=== PATIENT | female | born 1985 | race Caucasian/White ===

== ENCOUNTER → 2020-04-30 12:06 | Outpatient (BNVA) | payer BC, SELFPAY | PROVIDERS: PCP Nurse Practitioner; Visit Provider Nurse Practitioner Family | DX: J06.9 Acute upper respiratory infection, unspecified (principal); Z20.828 Contact with and (suspected) exposure to other viral communicable diseases | CPT/HCPCS: 87635 ==

== ENCOUNTER → 2020-06-14 11:13 | Outpatient (BNVA) | payer BC, SELFPAY | PROVIDERS: PCP Nurse Practitioner; Visit Provider Nurse Practitioner | DX: E04.9 Nontoxic goiter, unspecified (principal); E66.01 Morbid (severe) obesity due to excess calories; Z98.891 History of uterine scar from previous surgery; Z12.4 Encounter for screening for malignant neoplasm of cervix | CPT/HCPCS: 80053; 84443; 85025; 86800; 88175 ==

== ENCOUNTER → 2020-11-07 10:36 | Outpatient (BNVA) | payer BC, SELFPAY | PROVIDERS: PCP Nurse Practitioner; Visit Provider Nurse Practitioner | DX: R30.0 Dysuria (principal); E04.9 Nontoxic goiter, unspecified | CPT/HCPCS: 81000 ==

== ENCOUNTER 2020-12-03 13:52 | Outpatient (CLI) | payer BC, SELFPAY ==
--- NOTE | 2020-12-03 14:15 | US_ITS ---
WS: [id number] ULTRASOUND THYROID TECHNIQUE: Ultrasound of the thyroid. CLINICAL INFORMATION: E04.9 - Nontoxic goiter, unspecified COMPARISON: June 2012 and July 2009 FINDINGS: Technically difficult examination due to swelling along the left jaw with throat pain. Thyroid: Right and left thyroid lobes are normal in size and echotexture. Right thyroid lobe: 6.1 cm x 2.2 cm x 2.2 cm Right thyroid nodule measuring 1.3 x 1.9 x 2.2 cm. This is increased in size since 2011 where it Laura ured approximately 1.2 x 0.7 x 0.8 cm Left thyroid lobe: 5.5 cm x 1.7 cm x 1.7 cm. Tiny hypoechoic left thyroid lesion measuring 4.1 x 3.5 x 4.4 mm Isthmus: 0.6 mm. Cervical lymphadenopathy: None. US/US thyroid [id number] IMPRESSION: 1. Solid right thyroid nodule measuring 1.3 x 1.9 x 2.2 cm with some internal cystic change. This can be further evaluated with ultrasound-guided biopsy. 2. Tiny hypoechoic left thyroid lesion measuring 4.1 x 3.5 x 4.4 mm 3. No abnormalities in the area of the left submandibular gland and upper cerv ical chain in the area of concern
== END 2020-12-03 13:53 | disposition home or self-care (01) ==
LOC: RAD 13:55
PROVIDERS: PCP Nurse Practitioner; Visit Provider Nurse Practitioner
DX: E04.9 Nontoxic goiter, unspecified (principal); E04.1 Nontoxic single thyroid nodule
CPT/HCPCS: 76536

== ENCOUNTER 2021-01-07 06:47 | Outpatient (CLI) | payer BC, SELFPAY ==
--- NOTE | 2021-01-07 07:02 | US_ITS ---
WS: [id number] ULTRASOUND-GUIDED RIGHT THYROID NODULE FNA HISTORY: E04.9 - Nontoxic goiter, unspecified Procedure, risks, and complications were explained to the patient. Consent has been obtained. Comparison: 12/03/2020. The skin is cleansed with ChloraPrep and anesthetized with 1% buffered lidocaine. FNA performed with 25 gauge needles. neurodiagnostic technologist is present to fix slides. US/US biopsy thyroid [id number] IMPRESSION: Uncomplicated FNA of a RIGHT thyroid nodule. Final pathology results pending.
== END 2021-01-07 06:48 | disposition home or self-care (01) ==
LOC: RAD 06:50
PROVIDERS: PCP Nurse Practitioner; Visit Provider Nurse Practitioner
DX: E04.9 Nontoxic goiter, unspecified (principal)
CPT/HCPCS: 10005; 88173; 88305

== ENCOUNTER → 2021-04-09 08:06 | Outpatient (BNVA) | payer BC, SELFPAY | PROVIDERS: PCP Nurse Practitioner; Visit Provider Nurse Practitioner | DX: E04.1 Nontoxic single thyroid nodule (principal); E88.81 Metabolic syndrome and other insulin resistance; Z13.6 Encounter for screening for cardiovascular disorders | CPT/HCPCS: 80053; 80061; 84443 ==

== ENCOUNTER → 2021-08-07 11:57 | Outpatient (BNVA) | payer BC, SELFPAY | PROVIDERS: PCP Nurse Practitioner; Visit Provider Nurse Practitioner | DX: E04.1 Nontoxic single thyroid nodule (principal) | CPT/HCPCS: 80053; 82306; 82607; 84443; 85025 ==

== ENCOUNTER → 2022-01-28 09:48 | Outpatient (BNVA) | payer SELFPAY | PROVIDERS: PCP Nurse Practitioner; Visit Provider Dermatology | DX: Z01.89 Encounter for other specified special examinations (principal) ==

== ENCOUNTER → 2022-09-17 08:49 | Outpatient (BNVA) | payer BC, SELFPAY | PROVIDERS: PCP Nurse Practitioner; Visit Provider Nurse Practitioner | DX: E53.8 Deficiency of other specified B group vitamins (principal); E55.9 Vitamin D deficiency, unspecified; Z13.6 Encounter for screening for cardiovascular disorders; Z00.00 Encounter for general adult medical examination without abnormal findings; Z30.09 Encounter for other general counseling and advice on contraception | CPT/HCPCS: 80053; 80061; 81003; 82306; 82607; 85025; 87077; 87086; 87184 ==

== ENCOUNTER → 2023-02-27 09:23 | Outpatient (BNVA) | payer BC, SELFPAY | PROVIDERS: PCP Nurse Practitioner; Visit Provider Nurse Practitioner Women's Health | DX: Z34.80 Encounter for supervision of other normal pregnancy, unspecified trimester (principal); N92.6 Irregular menstruation, unspecified | CPT/HCPCS: 80307; 81025; 85027; 86592; 86762; 86803; 86850; 86900; 87086; 87340; 87806 ==

== ENCOUNTER → 2023-03-05 08:03 | Outpatient (BNVA) | payer BC, SELFPAY | PROVIDERS: PCP Nurse Practitioner; Visit Provider Nurse Practitioner Women's Health | DX: Z34.80 Encounter for supervision of other normal pregnancy, unspecified trimester (principal) | CPT/HCPCS: 76801 ==

== ENCOUNTER → 2023-09-08 10:05 | Day surgery (SDC) | payer BC, SELFPAY ==
--- NOTE | 2023-09-08 11:43 | ANES.PREANE2 ---
Pre-Anesthetic Assessment Height/Weight: Height 1.7 m Operation Date: 09/23/23 07:20 Proposed Procedures p Section 71136,Z34.83(Not Applicable) - Josep Laird MD Familial anesthetic complications: PONV and itching after emergency Social No alcohol and No tobacco Exam alert, oriented x 3, clear to auscultation bilaterally and regular rate & rhythm Airway Mallampati: Class II Dentition: full Pulmonary None reported CV/HEM None reported None reported Hepatic None reported GI None reported Metabolic None reported Musc/skel None reported Neuropsych None reported Anesthetic Plan ASA status: 2 Anesthesia: Regional (specify below) (spinal +/ epidural) Risk of > 500 ml blood loss (7ml/kg in children): No Medications/Allergies Home Medications Medication Instructions Recorded Confirmed Last Taken Type cholecalciferol (vitamin D3) 50 50 mcg PO DAILY 09/17/22 03/06/23 Unknown History mcg (2,000 unit) capsule mecobalamin (vitamin B12) 1,000 1,000 mcg PO DAILY 09/17/22 03/06/23 Unknown History mcg chewable tablet PNV 153-FA 400 mcg-om3 35 mg-dha 1 tab PO DAILY 02/27/23 03/06/23 Unknown History 25 mg-epa 5 mg-fish oil chew tablet ( Gummies) Allergies Allergy/AdvReac Type Severity Reaction Status Date / Time No Known Allergies Allergy Verified 03/06/23 15:15 [facility] Anesthesia Medical History (Updated 03/06/23 @ 17:17 by Erika Brennan APN, MANDY) Herpes zoster Metabolic syndrome Thyroid nodule Obesity, Class III, BMI 40-49.9 (morbid obesity) Surgical History (Updated 02/27/23 @ 10:22 by Erika Brennan APN, MANDY) History of hernia repair 07/22/21 History of gastric surgery 07/22/2021 History of section (~2007) Breech presentation; could not attempt version due to labor status-- [facility] Family History Father Hyperlipidemia Hypertension Diabetes Heart disease Brother Hypertension Other Chronic kidney disease (CKD) Denies family history of Colon cancer Ovarian cancer Dementia Breast cancer Bleeding disorder Lung disease Cancer Uterine cancer Thyroid condition Stroke Data Anesthesia Cardiac Studies: No Data to Display
== END ==
PROVIDERS: PCP Family Medicine; Visit Provider Family Medicine
DX: Z01.818 Encounter for other preprocedural examination (principal)

== ENCOUNTER 2023-09-13 15:40 | Outpatient (CLI) | payer BC, SELFPAY ==
[2023-09-13 15:37] VITALS: BMI 31.9
[2023-09-13 16:04] VITALS: RESP 16
[2023-09-13 16:15] LABS: Basophils % 0.4 %; Eosinophils # 0.1 10^3/uL (0.0-0.8); Eosinophils % 0.6 %; Hematocrit 40.4 % (36-47); Lymphocytes # 2.2 10^3/uL (0.8-4.8); Lymphocytes % 21.2 %; Mean Corpuscular HGB Conc 33.4 g/dL (30-55); Mean Corpuscular Hemoglobin 32.1 pg (27-33); Monocytes # 0.6 10^3/uL (0.2-0.9); Monocytes % 5.9 %; Neutrophils # 7.33 10^3/uL (1.8-7.7); Neutrophils % 71.5 %; Nucleated Red Blood Cells % 0 %; Platelet Count 246 10^3/cmm (157-399); Red Blood Count 4.21 10^6/uL (3.85-5.65); Red Cell Distribution Width 13.7 % (12.1-15.1); White Blood Count 10.24 10^3/uL (3.29-11.43)
[2023-09-13] MEDS: HYDROcodone-acetaminophen 5-325 mg Tablet 1 TAB PO (16:25)
[2023-09-13 16:29] LABS: Add Urine Culture? No; Bacteria Urine TRACE /hpf; Bilirubin Urine Neg (Negative); Blood Urine Neg (Negative); Glucose Urine UA Norm (Normal); Ketones Urine Negative (Negative); Leukocyte Esterase Urine Trace (Negative); Nitrate Urine Negative (Negative); Protein Urine Neg (Negative); Specific Gravity, Urine 1.005 (1.005-1.030); Squamous Epithelial Cell Urine 0-4 /hpf (0-5); Urine Appearance Clear (CLEAR); Urine Color Colorless (Yellow); Urobilinogen Urine Norm (Negative); WBC Urine 0-4 /hpf (0-5); pH Urine 6.5 (5-7)
[2023-09-13 16:39] LABS: Urine Creatinine 39 mg/dL (28-217); Urine Protein Random 4 mg/dL
[2023-09-13 16:48] LABS: Albumin Level 3.4 g/dL (3.5-5.2); Chloride 103 mmol/L (98-107); Potassium 4.1 mmol/L (3.5-5.1); Sodium 133 mmol/L (136-145)
[2023-09-13] MEDS: lactated ringers 1,000 ML 999 ML IV (16:53)
[2023-09-13 17:07] LABS: Alanine Aminotransferase 16 U/L (0-33); Anion Gap 16.1 (5-19); Aspartate Amino Transferase 17 U/L (0-32); Blood Urea Nitrogen 10 mg/dL (6-20); Calcium 9.2 mg/dL (8.5-10.5); Carbon Dioxide 18 mmol/L (22-29); Globulin 3.6 g/dL (1.3-4.6); Glomerular Filtration Rate 138.1 mL/min (90-130); Glucose 78 mg/dL (65-115); Osmolality Calculated 274 mOsm/kg (285-295); Total Bilirubin 0.3 mg/dL (0.15-1.2); Uric Acid 4.4 mg/dL (2.4-5.7)
[2023-09-13 17:20] LABS: Alkaline Phosphatase 101 U/L (35-105)
--- NOTE | 2023-09-13 17:41 | USR_ITS ---
PROCEDURE INFORMATION: Exam: US Biophysical Profile Without Non-Stress Test Exam date and time: 09/13/2023 6:00 PM Age: 38 years old Clinical indication: Other: Variable decels; TECHNIQUE: Imaging protocol: US biophysical profile without non-stress testing. COMPARISON: US OB >= 14 weeks fetus [id number] 05/20/2023 4:39 PM FINDINGS: Gestation: Single, viable intrauterine gestation. heart rate: 124 bpm. heart rate (FHR) is 124 bpm. presentation: Fetus is in breech presentation. Placenta: The placenta is anterior. No placental abruption. Amniotic fluid: Normal amount of amniotic fluid, with an amniotic fluid index of 7.3 cm using maximum vertical pocket method. BIOPHYSICAL PROFILE: breathing movement (BPP): 2 out of 2. body movement (BPP): 2 out of 2. tone (BPP): 2 out of 2. Amniotic fluid (BPP): 2 out of 2. MATERNAL ANATOMY: Cervix: The maternal cervix is not visualized. US/US OB BPP wo NST [id number] IMPRESSION: 1. Single, viable intrauterine gestation. 2. Biophysical profile score 8/8.
[2023-09-13 18:41] VITALS: RESP 16
== END 2023-09-13 18:42 | disposition home or self-care (01) ==
LOC: OPOB 15:41 → OBGYN 15:43
PROVIDERS: PCP Family Medicine; Visit Provider Family Medicine
DX: O26.899 Other specified pregnancy related conditions, unspecified trimester (principal); Z3A.00 Weeks of gestation of pregnancy not specified; R51.9 Headache, unspecified
CPT/HCPCS: 36415; 59025; 76819; 80053; 81001; 82570; 84156; 84550; 85025; 99211; J7120

== ENCOUNTER 2023-09-18 22:56 | Inpatient (IN) | payer BC, MEDICAID, SELFPAY ==
[2023-09-18] VITALS (24 sets, daily range): BP systolic 88–122; BP diastolic 50–73; PULSE 52–84; RESP 17–18; BMI 31.6
[2023-09-18] MEDS: morphine 4 mg/mL SDV 1 mL 8 MG IVP (16:58)
[2023-09-18] MEDS: lactated ringers 1,000 ML 125 ML IV (16:58)
[2023-09-18] MEDS: ondansetron 2 mg/ML SDV 2 mL 8 MG IVP (16:59)
--- NOTE | 2023-09-18 17:10 | MRR_ITS ---
PROCEDURE INFORMATION: Exam: MRA Head Without Contrast; Arteriography Exam date and time: 09/18/2023 6:25 PM Age: 38 years old Clinical indication: Pain; Headache; Additional info: Head pain x6 days TECHNIQUE: Imaging protocol: Magnetic resonance angiography head without contrast. Dmnc-la-jueiba (TOF) technique was utilized for this exam. Exam focused on the arteries. COMPARISON: US biopsy/FNA thyroid [id number] 01/07/2021 7:40 AM FINDINGS: ANTERIOR CIRCULATION: Right internal carotid artery: Intracranial segment is patent with no significant stenosis. No aneurysm. Right middle cerebral artery: No occlusion or significant stenosis. No aneurysm. Right anterior cerebral artery: No occlusion or significant stenosis. No aneurysm. Left internal carotid artery: Intracranial segment is patent with no significant stenosis. No aneurysm. Left middle cerebral artery: No occlusion or significant stenosis. No aneurysm. Left anterior cerebral artery: No occlusion or significant stenosis. No aneurysm. POSTERIOR CIRCULATION: Right vertebral artery: No occlusion or significant stenosis. No aneurysm. Left vertebral artery: No occlusion or significant stenosis. No aneurysm. Basilar artery: No occlusion or significant stenosis. No aneurysm. Right posterior cerebral artery: No occlusion or significant stenosis. No aneurysm. Left posterior cerebral artery: No occlusion or significant stenosis. No aneurysm. MR/MR angio head wo con [id number] IMPRESSION: No stenosis or occlusion.
--- NOTE | 2023-09-18 17:13 | MRR_ITS ---
PROCEDURE INFORMATION: Exam: MR Head Without Contrast Exam date and time: 09/18/2023 6:32 PM Age: 38 years old Clinical indication: Pain; Headache; Additional info: Head pain x6 days TECHNIQUE: Imaging protocol: Magnetic resonance imaging of the head without contrast. COMPARISON: MR angio head wo con [id number] 09/18/2023 6:25 PM FINDINGS: Brain: Normal. No acute infarct. No hemorrhage. No significant white matter disease. No edema. Cerebral ventricles: Normal. No ventriculomegaly. Bones/joints: Unremarkable. Paranasal sinuses: Normal as visualized. No acute sinusitis. Mastoid air cells: Normal as visualized. No mastoid effusion. Orbital cavities: Unremarkable. Soft tissues: Unremarkable. MR/MR head wo con* [id number] IMPRESSION: No acute findings.
--- NOTE | 2023-09-18 20:25 | USR_ITS ---
PROCEDURE INFORMATION: Exam: US Biophysical Profile Without Non-Stress Test Exam date and time: 09/18/2023 9:54 PM Age: 38 years old Clinical indication: Other: Non reactive nst; TECHNIQUE: Imaging protocol: US biophysical profile without non-stress testing. COMPARISON: US OB BPP NST [id number] 09/13/2023 6:00 PM FINDINGS: There is an intrauterine in breech presentation with heart rate of 131 bpm. MARCELLE 21.0 cm. Anterior/fundal placenta. BIOPHYSICAL PROFILE: breathing movement (BPP): 0 out of 2. body movement (BPP): 2 out of 2. tone (BPP): 2 out of 2. Amniotic fluid (BPP): 2 out of 2. US/US OB BPP NST [id number] IMPRESSION: 1. Biophysical profile score is 6 out of 8. Score of 0 for breathing movements. 2. MARCELLE 21.0 cm.
--- NOTE | 2023-09-18 23:24 | PM.OBGYHP ---
Providers/Chief Complaint Primary Care Provider: Josep Laird MD Chief Complaint: contractions/headache HPI UX DEVELOPER DESIGNER History of Present Illness Ravi Morales is a 38 year old 2 para 1-0-0-1 female at 38 weeks estimated gestational age. She presented to the hospital earlier today due to having nausea vomiting and contractions. She is also scheduled to have an MRA/MRI today. She was given pain medication and antinausea medication, and they were able to perform her MRI and MRA today. Thankfully, there is no problems noted. But after the MRI, we know that the baby had minimal variability at times and did not have any accelerations for reactive strip. Her biophysical profile was 6 out of 8. Because of her gestational age, and questions regarding the heart tones, the decision was made to proceed with a section. The mother also desires a tubal ligation during surgery. We discussed the risks and alternatives of a tubal earlier in her . Present Details : 2 Para: 1 Review of Systems General: Reports: 10 or more systems reviewed and unremarkable except in HPI and below Const: Reports: fatigue; Denies: fever(s) Eyes: Denies: change in vision Card: Denies: chest pain Musc: Reports: back pain Neuro: Reports: headache(s) (Improved after morphine.) Neal/Lymph: Denies: easy bruising Medications/Allergies Home Medications Medication Instructions Recorded Confirmed Last Taken Type cholecalciferol (vitamin D3) 50 50 mcg PO DAILY 09/17/22 03/06/23 Unknown History mcg (2,000 unit) capsule mecobalamin (vitamin B12) 1,000 1,000 mcg PO DAILY 09/17/22 03/06/23 Unknown History mcg chewable tablet PNV 153-FA 400 mcg-om3 35 mg-dha 1 tab PO DAILY 02/27/23 03/06/23 Unknown History 25 mg-epa 5 mg-fish oil chew tablet ( Gummies) hydrocodone 5 mg-acetaminophen 325 1 tab PO Q6H PRN pain #20 tabs 09/18/23 Unknown Rx mg tablet Allergies Allergy/AdvReac Type Severity Reaction Status Date / Time No Known Allergies Allergy Verified 03/06/23 15:15 PFSH UX DEVELOPER DESIGNER PFSH: Medical History Herpes zoster Metabolic syndrome Thyroid nodule Obesity, Class III, BMI 40-49.9 (morbid obesity) Surgical History History of hernia repair 07/22/21 History of gastric surgery 07/22/2021 History of section (~2007) Breech presentation; could not attempt version due to labor status-- [facility] Family History Father Hyperlipidemia Hypertension Diabetes Heart disease Brother Hypertension Other Chronic kidney disease (CKD) Denies family history of Colon cancer Ovarian cancer Dementia Breast cancer Bleeding disorder Lung disease Cancer Uterine cancer Thyroid disease Stroke History History History 2 Term 1 0 Miscarriages/Ectopic 0 Living Children 1 Care DARRELL Calculator Estimated Delivery Date Method Current WG Current Estimate 09/30/23 Ultrasound #1 38w 2d Other Estimates 10/06/23 LMP (Certain) 37w 3d Specific Issues/Plans AMA RH NEGATIVE B 12 DEFICIENCY Vitals/I&O/Wt Last Vital Signs Pulse 74 09/18/23 23:14 Resp 17 09/18/23 16:58 BP 109/65 09/18/23 23:14 O2 Del Method Room Air 09/18/23 15:45 Weight last 48 hrs Weight 202 lb Physical Exam Const: COMMON NORMALS: patient oriented x3 and alert HENMT: COMMON NORMALS: moist oral mucous membranes HEAD & SCALP: normal to inspection Chest: COMMONS NORMALS: normal inspection of the chest Resp: COMMON NORMALS: clear to auscultation bilaterally AUSCULTATION: clear to auscultation bilaterally Cardio: COMMON NORMALS: regular rate and regular rhythm RATE: regular rate RHYTHM: regular rhythm GI: INSPECTION: Yes normal to inspection and Yes other (Gravid) Extremity: COMMON NORMALS: normal to inspection GENERAL: Yes edema (Trace) Neuro: COMMON NORMALS: patient oriented x3, moves all extremities and no sensory deficits noted SENSORIUM/ORIENTATION: Yes alert CRANIAL NERVES: Yes CN normal except as noted Psych: COMMON NORMALS: mental status grossly normal Skin: COMMON NORMALS: no rashes or lesions noted GENERAL SKIN EXAM: no rashes or lesions noted Data 09/18/23 16:50 Results Labs OB ([facility]): Obstetrics US/Biophysical Profile 09/18/23 Blood Type O Negative 02/27/23 Antibody Screen Negative 02/27/23 Hct 40.7 % (36-47) 09/18/23 Hgb 13.60 g/dL (11.27-16.99) 09/18/23 Rho(D) Type Negative 02/27/23 Plt Count 287 10^3/cmm (157-399) 09/18/23 Hep Bs Antigen Non-reactive (Nonreactive) 02/27/23 Hepatitis C Antibody Non-reactive (Nonreactive) 02/27/23 Rubella IgG Antibody 14.7 IU/mL (0.0-10.0) H 02/27/23 RPR Nonreactive (Nonreactive) 02/27/23 HIV 1&2 Ab & HIV 1 Ag Non-reactive (Non-Reactiv) 02/27/23 TSH 0.80 uIU/mL (0.27-4.20) 01/28/22 Cystic Fibrosis Screen Negative 03/13/23 Hemoglobin A1c 5.1 % (4.0-6.0) 01/28/22 Uric Acid 4.4 mg/dL (2.4-5.7) 09/13/23 HCG, Qual Positive (Negative) H 02/27/23 Urine Opiates Screen Negative ng/mL (Negative) 02/27/23 Ur Barbiturates Screen Negative ng/mL (Negative) 02/27/23 Ur Phencyclidine Scrn Negative ng/mL (Negative) 02/27/23 Ur Amphetamines Screen Negative ng/mL (Negative) 02/27/23 U Benzodiazepines Scrn Negative ng/mL (Negative) 02/27/23 Urine Cocaine Screen Negative ng/mL (Negative) 02/27/23 U Marijuana (THC) Screen Negative ng/mL (Negative) 02/27/23 Micro Urine Specimen 02/27/23 Pap Smear Interpret See note 06/14/20 A&P Assessment and plan (1) 38 weeks gestation of : (2) Non-reassuring heart tones complicating , antepartum: Since the heart tones have been largely without accelerations, and the biophysical profile was 6 out of 8, and she is relatively close to her scheduled section, it is likely that the benefits of waiting a few more days for a do not outweigh the risks given the biophysical profile and marginal heart tones. I previously discussed the risks of bleeding, infection, and damage intra-abdominal organs with the patient. I once again reiterated that with her and her tonight. We also discussed the risks of a tubal ligation including the risks of bleeding, infection, and damage intra-abdominal organs. We also discussed the risk of becoming again despite a successful tubal ligation as well as increased risk of an ectopic . Attestations Medical Necessity Statement*: I anticipate routine and post care Coding Level of Care Code Acute Code for Chg Fwd Diagnoses 38 weeks gestation of Z3A.38 Non-reassuring heart tones complicating , antepartum O36.8390
[2023-09-18 23:27] LABS: Basophils % 0.3 %; Eosinophils # 0.1 10^3/uL (0.0-0.8); Eosinophils % 0.5 %; Hematocrit 40.7 % (36-47); Lymphocytes # 2.2 10^3/uL (0.8-4.8); Lymphocytes % 17.5 %; Mean Corpuscular HGB Conc 33.4 g/dL (30-55); Mean Corpuscular Hemoglobin 32.5 pg (27-33); Mean Corpuscular Volume 97.4 fl (85-98); Mean Platelet Volume 10.5 fL (7.4-10.4); Monocytes # 0.9 10^3/uL (0.2-0.9); Monocytes % 6.8 %; Neutrophils # 9.48 10^3/uL (1.8-7.7); Neutrophils % 74.4 %; Nucleated Red Blood Cells % 0 %; Platelet Count 287 10^3/cmm (157-399); Red Blood Count 4.18 10^6/uL (3.85-5.65); White Blood Count 12.75 10^3/uL (3.29-11.43)
[2023-09-18] MEDS: metoclopramide 5 mg/mL SDV 2 mL 10 MG IVP (23:40)
[2023-09-18] MEDS: lactated ringers 1,000 ML 999 ML IV (23:40)
[2023-09-18] MEDS: famotidine 20 mg/2 mL INJ IVP (23:40)
[2023-09-18] MEDS: citric acid-sodium citrate 30 mL UDC PO (23:40)
[2023-09-19] VITALS (25 sets, daily range): BP systolic 101–126; BP diastolic 52–77; PULSE 57–77; RESP 17; TEMP 35.6–37; O2SAT 95–100
[2023-09-19] MEDS: BUPivacaine 0.5% INJ 30 mL INJECTION
--- NOTE | 2023-09-19 00:13 | ANES.PREANE2 ---
Pre-Anesthetic Assessment Height/Weight: Height 1.7 m Weight 91.626 kg Pulse Resp BP O2 Del Method 74 17 109/65 Room Air 09/18/23 23:14 09/18/23 16:58 09/18/23 23:14 09/18/23 15:45 Exam alert and oriented x 3 Airway Submandibular: within normal limits Cervical ROM: within normal limits Mallampati: Class I Anesthetic Plan ASA status: 2E Anesthesia: Eval. for regional block and Regional (specify below) Other: spinal Medications/Allergies Home Medications Medication Instructions Recorded Confirmed Last Taken Type cholecalciferol (vitamin D3) 50 50 mcg PO DAILY 09/17/22 03/06/23 Unknown History mcg (2,000 unit) capsule mecobalamin (vitamin B12) 1,000 1,000 mcg PO DAILY 09/17/22 03/06/23 Unknown History mcg chewable tablet PNV 153-FA 400 mcg-om3 35 mg-dha 1 tab PO DAILY 02/27/23 03/06/23 Unknown History 25 mg-epa 5 mg-fish oil chew tablet ( Gummies) hydrocodone 5 mg-acetaminophen 325 1 tab PO Q6H PRN pain #20 tabs 09/18/23 Unknown Rx mg tablet Allergies Allergy/AdvReac Type Severity Reaction Status Date / Time No Known Allergies Allergy Verified 03/06/23 15:15 Current Medications Generic Name Dose Route Start Last Admin Trade Name Freq PRN Reason Stop Dose Admin Lactated Ringer's 1,000 mls @ 125 mls/hr 09/18/23 16:45 09/18/23 16:58 Lactated Ringers IV 125 mls/hr .Q8H CATALINA Administration Morphine Sulfate 8 mg 09/18/23 16:36 09/18/23 16:58 Morphine 4 Mg/Ml Sdv 1 Ml IVP 8 mg ONCE PRN Administration SEVERE PAIN PFSH Anesthesia Medical History Herpes zoster Metabolic syndrome Thyroid nodule Obesity, Class III, BMI 40-49.9 (morbid obesity) Surgical History History of hernia repair 07/22/21 History of gastric surgery 07/22/2021 History of section (~2007) Breech presentation; could not attempt version due to labor status-- [facility] Family History Father Hyperlipidemia Hypertension Diabetes Heart disease Brother Hypertension Other Chronic kidney disease (CKD) Denies family history of Colon cancer Ovarian cancer Dementia Breast cancer Bleeding disorder Lung disease Cancer Uterine cancer Thyroid disease Stroke Female Reproductive History : 2 Data Anesthesia 09/18/23 16:50 Short CBC 09/18/23 Range/Units 16:50 WBC 12.75 H (3.29-11.43) 10^3/uL Hgb 13.60 (11.27-16.99) g/dL Hct 40.7 (36-47) % MCV 97.4 (85-98) fl Plt Count 287 (157-399) 10^3/cmm Neut % (Auto) 74.4 % Neut # (Auto) 9.48 H (1.8-7.7) 10^3/uL Blood Bank 09/18/23 16:50 Blood Type O Negative Rho(D) Type Negative Antibody Screen Positive Cardiac Studies: No Data to Display
--- NOTE | 2023-09-19 00:47 | PM.OP ---
Operative Report Date of procedure: September 19, 2023 Pre-op diagnosis: 1. 38-year-old 2 para 1-0-0-1 at 38 weeks estimated gestational age 2. History of section 3. Breech presentation 4. 6 out of 8 biophysical profile and nonreactive heart tones 5. Desires sterilization Post-op diagnosis: Same Procedure done: 1. Repeat lower transverse section 2. Intraoperative bilateral tubal ligation using modified Brigida technique Specimens removed/disposition: 1. Male with a weight of 6 pounds 3 ounces and Apgars of 2. Placenta with a three-vessel cord delivered intact 3. Right fallopian tube 4. Scar tissue corresponding to the area of the left fallopian tube. Pathology: 1. Right fallopian tube tagged 2. Left fallopian tube/scar tissue Surgeon: Josep Laird MD Estimated blood loss (mL): 200 Complications: None Procedure: The patient was brought back to the operating room where she was prepped and draped in usual sterile fashion. Anesthesia was found to be adequate. A lower transverse skin incision was then made with a #10 blade. I then dissected down to the underlying subcutaneous tissue until arriving at the prerectal fascia. The fascia was then nicked with the scalpel bilaterally. The fascial incisions were then carried laterally with Thakur scissors. Attention was then turned to the superior aspect of the incision which was grasped with kochers and tented up away from the underlying rectus abdominis muscles. The muscles were then dissected away from the fascia manually, and later with Thakur scissors. Attention was then turned to the inferior aspect of the incision, and the fascia was dissected away from the underlying muscle in similar fashion. The rectus abdominis muscles were then spread manually. The peritoneum was entered manually. Excellent visualization of the uterus was noted. A lower transverse uterine incision was then made with a #10 blade. Upon arriving at the intrauterine cavity, the uterine incision was then extended manually. The infant was noted to be in a breech position. Remarkably, the baby had a nuchal cord x 5 which was partially reduced prior to delivery, and then completely reduced after delivery. The baby was delivered without difficulty. There was no meconium. There was no nuchal cord. The cord was cut and clamped. The cord was noted to have a very small diameter, but was still a three-vessel cord. The baby was then handed to the waiting nurse. The placenta was removed. But a portion of the placenta was adherent to the fundus of the uterus. I was able to to manually remove the placenta. I carefully examined the intrauterine cavity and did not find any further debris, or residual placental tissue. The uterus was externalized. The uterine incision was reapproximated in 2 layers. The first layer was performed with 0 Vicryl in a running locked stitch. The second layer was an imbricating stitch also using 0 Vicryl. The uterus was replaced into the abdomen. The peritoneum was then irrigated with warm saline. I reexamined the uterine incision and found it to be hemostatic. Attention was then turned to the right fallopian tube which which was ligated cut and cauterized in a modified Brigida fashion with 0 chromic. Attention was then turned to the left fallopian tube. There was no obvious fallopian tube. I carefully examined the area and found scar tissue in the area associated with the fallopian tube. I follow that through 2 a small amount of residual fimbria. I then ligated the tissue in a modified Brigida fashion as well. The rectus abdominis muscles were then reapproximated using 0 Vicryl in a running stitch. The fascia was then reapproximated using 0 Vicryl in running stitch. The subcutaneous tissue was reapproximated using 0 Vicryl in a running stitch. The skin was reapproximated using chelo. A sterile dressing was placed. All counts were correct x2. Both the mother and baby were in stable condition.
--- NOTE | 2023-09-19 01:00 | ANE.PACU2 ---
Inpatient post-anesthesia follow up: Airway intact: Yes Vital signs: Temperature 97.3 F Pulse Rate 103 Respiratory Rate 17 Blood Pressure 115/73 Pulse Oximetry 100 Oxygen Delivery Me thod Room Air Oxygen Flow Rate Fraction of Inspir ed Oxygen Hydration adequate: Yes Nausea and vomiting: No Pain level: 1 Mental status: Baseline
[2023-09-19 13:51] LABS: Hematocrit 35.1 % (36-47); Mean Corpuscular HGB Conc 34.2 g/dL (30-55); Mean Corpuscular Hemoglobin 32.4 pg (27-33); Mean Corpuscular Volume 94.9 fl (85-98); Mean Platelet Volume 9.8 fL (7.4-10.4); Platelet Count 222 10^3/cmm (157-399); Red Cell Distribution Width 13.9 % (12.1-15.1); White Blood Count 16.83 10^3/uL (3.29-11.43)
[2023-09-19] MEDS: HYDROcodone-acetaminophen 5-325 mg Tablet PO (19:00)
[2023-09-20] MEDS: HYDROcodone-acetaminophen 5-325 mg Tablet PO ×3 (01:31→16:06)
--- NOTE | 2023-09-20 03:20 | PC.NURSE ---
Patient eyes closed, quiet with even respirations.
[2023-09-20 04:39] VITALS: BP 120/73; PULSE 75; TEMP 36.3
[2023-09-20 04:57] VITALS: RESP 16
[2023-09-20 08:37] VITALS: BP 115/73; PULSE 89; TEMP 36.6
--- NOTE | 2023-09-20 08:49 | PM.OBGYDC ---
Discharge Providers IAP DISPLAYS ANALYST Date of Admission: 09/18/23 22:56 Date of Discharge: 09/21/23 Attending Provider at Admission: Josep Laird MD Attending Provider at Discharge: Josep Laird MD Primary Care Provider: Josep Laird MD Diagnoses at Discharge Discharge Diagnosis (1) 38 weeks gestation of : Status: Inactive (2) Non-reassuring heart tones complicating , antepartum: Status: Inactive Reason for Visit Reason for Visit: contractions/headache Hospital Course Hospital Course The patient initially arrived to the OB department because she was having severe headaches. She had been evaluated for severe headaches in my office and we elected to do an MRI and MRA of her head to better assess the etiology. Thankfully, the MRI and MRA were negative. But she began having contractions and cervical change. As result we proceeded with a repeat section and intraoperative bilateral tubal ligation. Her procedure was unremarkable. Her course was also unremarkable. Her bleeding was within normal limits. Her pain was well-controlled. Her headache was improved overall. There were no complications. Information Peripartum Data: Infant Delivery Method: Vaginal Physical Exam Narrative: She is in no acute distress Lungs are clear auscultation bilaterally Her heart has a regular rate and rhythm Her fundus is below the umbilicus and firm Her dressing is clean, dry and intact Her extremities have trace edema Urinary Catheter Management: Saucedo Latex: Cath Placed During This Visit: yes, but has since been removed by the nurse Reason for Continuing Indwelling Catheter: Decision to DC Catheter Urinary Catheter Date of Insertion: 09/18/23 Urinary Catheter Time of Insertion: 23:15 Date Urinary Catheter Removed: 09/19/23 Time Urinary Catheter Discontinued: 12:00 History History History 2 Term 1 0 Miscarriages/Ectopic 0 Living Children 1 Discharge Data Studies Completed and Pending Completed Studies During Hospitalization Category Date Time Status MR head wo con* [id number] Urgent MRI 09/18/23 17:13 Completed MRA head [MR angio head wo con [id number]] Urgent MRI 09/18/23 17:10 Completed US OB BPP wo NST 55313 Stat Ultrasound 09/18/23 20:25 Completed Radiology Impressions Head MRA 09/18/23 17:10 IMPRESSION: No stenosis or occlusion. Head MRI 09/18/23 17:13 IMPRESSION: No acute findings. Obstetrics US/Biophysical Profile 09/18/23 20:25 IMPRESSION: 1. Biophysical profile score is 6 out of 8. Score of 0 for breathing movements. 2. MARCELLE 21.0 cm. Laboratory Results WBC 16.83 10^3/uL (3.29-11.43) H 09/19/23 13:30 RBC 3.70 10^6/uL (3.85-5.65) L 09/19/23 13:30 Hgb 12.00 g/dL (11.27-16.99) 09/19/23 13:30 Hct 35.1 % (36-47) L 09/19/23 13:30 MCV 94.9 fl (85-98) 09/19/23 13:30 MCH 32.4 pg (27-33) 09/19/23 13:30 MCHC 34.2 g/dL (30-55) 09/19/23 13:30 RDW 13.9 % (12.1-15.1) 09/19/23 13:30 Plt Count 222 10^3/cmm (157-399) 09/19/23 13:30 MPV 9.8 fL (7.4-10.4) 09/19/23 13:30 Neut % (Auto) 74.4 % 09/18/23 16:50 Lymph % (Auto) 17.5 % 09/18/23 16:50 [place] % (Auto) 6.8 % 09/18/23 16:50 Eos % (Auto) 0.5 % 09/18/23 16:50 Baso % (Auto) 0.3 % 09/18/23 16:50 Neut # (Auto) 9.48 10^3/uL (1.8-7.7) H 09/18/23 16:50 Lymph # (Auto) 2.2 10^3/uL (0.8-4.8) 09/18/23 16:50 [place] # (Auto) 0.9 10^3/uL (0.2-0.9) 09/18/23 16:50 Eos # (Auto) 0.1 10^3/uL (0.0-0.8) 09/18/23 16:50 Baso # (Auto) 0.0 10^3/uL (0.0-0.1) 09/18/23 16:50 Nucleated RBC % (auto) 0 % 09/18/23 16:50 Nucleated RBCs # 0.0 /100WBC 09/18/23 16:50 Blood Type O Negative 09/18/23 16:50 Rho(D) Type Negative 09/18/23 16:50 Antibody Screen Positive 09/18/23 16:50 Antibody Identification Anti-D 09/18/23 16:50 Vitals Last Vital Signs Temp 97.9 F 09/20/23 08:37 Pulse 89 09/20/23 08:37 Resp 16 09/20/23 04:57 BP 115/73 09/20/23 08:37 Pulse Ox 95 09/19/23 22:00 O2 Del Method Room Air 09/20/23 04:57 Results Labs OB ([facility]): Obstetrics US/Biophysical Profile 09/18/23 Blood Type O Negative 09/18/23 Antibody Screen Positive 09/18/23 Hct 35.1 % (36-47) L 09/19/23 Hgb 12.00 g/dL (11.27-16.99) 09/19/23 Rho(D) Type Negative 09/18/23 Plt Count 222 10^3/cmm (157-399) 09/19/23 Hep Bs Antigen Non-reactive (Nonreactive) 02/27/23 Hepatitis C Antibody Non-reactive (Nonreactive) 02/27/23 Rubella IgG Antibody 14.7 IU/mL (0.0-10.0) H 02/27/23 RPR Nonreactive (Nonreactive) 02/27/23 HIV 1&2 Ab & HIV 1 Ag Non-reactive (Non-Reactiv) 02/27/23 TSH 0.80 uIU/mL (0.27-4.20) 01/28/22 Cystic Fibrosis Screen Negative 03/13/23 Hemoglobin A1c 5.1 % (4.0-6.0) 01/28/22 Uric Acid 4.4 mg/dL (2.4-5.7) 09/13/23 HCG, Qual Positive (Negative) H 02/27/23 Urine Opiates Screen Negative ng/mL (Negative) 02/27/23 Ur Barbiturates Screen Negative ng/mL (Negative) 02/27/23 Ur Phencyclidine Scrn Negative ng/mL (Negative) 02/27/23 Ur Amphetamines Screen Negative ng/mL (Negative) 02/27/23 U Benzodiazepines Scrn Negative ng/mL (Negative) 02/27/23 Urine Cocaine Screen Negative ng/mL (Negative) 02/27/23 U Marijuana (THC) Screen Negative ng/mL (Negative) 02/27/23 Micro Urine Specimen 02/27/23 Pap Smear Interpret See note 06/14/20 Discharge Plan Discharge Patient Disposition: Home Condition: Stable Prescriptions: New hydrocodone-acetaminophen 5-325 mg tablet 1 tab PO Q6H PRN (Reason: pain) Qty: 20 0RF No Action mecobalamin (vitamin B12) 1,000 mcg tablet,chewable 1,000 mcg PO DAILY cholecalciferol (vitamin D3) 50 mcg (2,000 unit) capsule 50 mcg PO DAILY Gummies 400 mcg-35 mg- 25 mg-5 mg tablet,chewable 1 tab PO DAILY Discharge Orders: Discharge Order (Routine); Ordered 09/20/23 Ordered By: Josep aLird Referrals: Josep Laird MD [Primary Care Provider] - 4-7 days (Set up 6 week follow up.) Discharge Diet: Usual diet Discharge Activity: Limit activity as instructed Patient Instructions: Depression (DC), Bleeding (DC), Preeclampsia and Eclampsia After Delivery (GEN), Abnormal Bleeding Discharge Attestations IAP DISPLAYS ANALYST Time Spent in Discharge Care*: less than 30 min Coding Level of Care Code Acute Code for Chg Fwd Diagnoses 38 weeks gestation of Z3A.38 Non-reassuring heart tones complicating , antepartum O36.8390
[2023-09-20] MEDS: docusate sodium 100 mg Capsule PO ×2 (10:42→16:06)
[2023-09-20] MEDS: prenatal vitamin Capsule 1 CAP PO (10:42)
[2023-09-20 13:54] LABS: Glucose Point of Care 63 mg/dL (70-110)
[2023-09-20 15:22] VITALS: PULSE 103; O2SAT 100
[2023-09-20 15:24] VITALS: TEMP 36.3
[2023-09-20 16:00] VITALS: RESP 17; TEMP 36.3
--- NOTE | 2023-09-20 22:19 | ANE.PACU2 ---
Inpatient post-anesthesia follow up: Vital signs: Temperature 97.3 F Pulse Rate 103 Respiratory Rate 17 Blood Pressure 115/73 Pulse Oximetry 100 Oxygen Delivery Me thod Room Air Oxygen Flow Rate Fraction of Inspir ed Oxygen Hydration adequate: Yes Nausea and vomiting: No Pain level: 1 Mental status: Baseline
== END 2023-09-20 17:01 | disposition home or self-care (01) | DRG 785 ==
LOC: OPOB 09-19 13:44 → OBGYN 09-19 13:44
PROVIDERS: Admitting Provider Family Medicine; PCP Family Medicine; Visit Provider Family Medicine
PROC: (CPT 59514; principal; 2023-09-18 23:45)
DX: O76 Abnormality in fetal heart rate and rhythm complicating labor and delivery (principal); O32.1XX0 Maternal care for breech presentation, not applicable or unspecified; O69.81X0 Labor and delivery complicated by cord around neck, without compression, not applicable or unspecified; Z3A.38 38 weeks gestation of pregnancy; Z37.0 Single live birth; R51.9 Headache, unspecified; R11.2 Nausea with vomiting, unspecified; O34.211 Maternal care for low transverse scar from previous cesarean delivery; N85.8 Other specified noninflammatory disorders of uterus; Z30.2 Encounter for sterilization
CPT/HCPCS: 36415; 36416; 51702; 58611; 59025; 59409; 70544; 70551; 76819; 80503; 82962; 85025; 85027; 86850; 86870; 86900; 88302; 96374; 99211; J2270; J2274; J2405; J2765; J3490; J7120

== ENCOUNTER → 2025-06-21 08:57 | Outpatient (BNVA) | payer BC, MEDICAID, SELFPAY | PROVIDERS: PCP Nurse Practitioner; Visit Provider Nurse Practitioner | DX: E55.9 Vitamin D deficiency, unspecified (principal); Z98.51 Tubal ligation status; E53.8 Deficiency of other specified B group vitamins; E04.1 Nontoxic single thyroid nodule; Z13.6 Encounter for screening for cardiovascular disorders | CPT/HCPCS: 80053; 80061; 82306; 82607; 84443; 85025 ==

== ENCOUNTER 2025-06-27 15:18 | Outpatient (CLI) | payer BC, MEDICAID, SELFPAY ==
--- NOTE | 2025-06-27 15:20 | MM_ITS ---
WS: [id number] BILATERAL 3D TOMOSYNTHESIS DIGITAL SCREENING MAMMOGRAPHY WITH CAD CLINICAL INFORMATION: Z12.31 - Encounter for screening mammogram for malignant ... HISTORY: Screening mammogram. No current complaints. COMPARISON: Baseline TECHNIQUE: Bilateral CC and MLO views. FINDINGS: Scattered fibroglandular densities bilaterally. 4 mm nodular density central RIGHT breast only well seen on the MLO view. Recommend RIGHT breast diagnostic mammography and ultrasound if persistent. Unremarkable LEFT breast MM/MM scr tomosynthesis [id number] IMPRESSION: DENSITY: There are scattered areas of fibroglandular density. BI-RADS: 0 - Incomplete: Need additional imaging evaluation. FOLLOW UP: Need Additional Imaging Recommend RIGHT breast diagnostic mammography and ultrasound if persistent.
== END 2025-06-27 15:19 | disposition home or self-care (01) ==
PROVIDERS: PCP Nurse Practitioner; Visit Provider Nurse Practitioner
DX: Z12.31 Encounter for screening mammogram for malignant neoplasm of breast (principal); R92.323 Mammographic fibroglandular density, bilateral breasts
CPT/HCPCS: 77063; 77067

== ENCOUNTER 2025-07-20 08:47 | Outpatient (CLI) | payer BC, MEDICAID, SELFPAY ==
--- NOTE | 2025-07-20 09:15 | MM_ITS ---
WS: [id number] RIGHT 3D TOMOSYNTHESIS DIGITAL MAMMOGRAPHY WITH CAD CLINICAL INFORMATION: R92.8 - Other abnormal and inconclusive findings on diagn... HISTORY: Additional views TECHNIQUE: 3 views of the right breast were obtained. FINDINGS: Scattered fibroglandular densities of the right breast. Previously described ovoid asymmetric density appears to compress out today on the spot compression views. No new suspicious abnormalities. Recommend return to annual screening mammography. MM/MM diag RT tomosynthesis [id number] IMPRESSION: DENSITY: There are scattered areas of fibroglandular density. BI-RADS: 2 - Benign. FOLLOW UP: 1 Year Follow-up Recommend return to annual screening mammography.
== END 2025-07-20 08:48 | disposition home or self-care (01) ==
LOC: RAD 08:48
PROVIDERS: PCP Nurse Practitioner; Visit Provider Nurse Practitioner
DX: R92.8 Other abnormal and inconclusive findings on diagnostic imaging of breast (principal); R92.323 Mammographic fibroglandular density, bilateral breasts; N64.89 Other specified disorders of breast
CPT/HCPCS: 77061; G0279